=== PATIENT | female | born 1965 | race Caucasian/White ===

== ENCOUNTER 2022-02-16 07:31 | Emergency (ER) | payer OTHER ==
[~2022-02-16] VITALS: Ht 160 cm; Wt 91.0 kg
[2022-02-16 08:00] VITALS: BP 116/67
[2022-02-16] MEDS ORDERED: CEPH500T PO (09:49)
[2022-02-16] MEDS ORDERED: SULF1TAB48 PO (09:49)
[2022-02-16] MEDS ORDERED: OXYC-100 PO (09:49)
[2022-02-16] MEDS ORDERED: IBUPROFEN 400MG TABLET PO SCH (10:15)
[2022-02-17] MEDS ORDERED: CLIN-194 MT (05:43)
== END 2022-02-16 11:03 | disposition home or self-care (01) ==
LOC: ER 07:31
DX: L03.317 Cellulitis of buttock (principal); I10 Essential (primary) hypertension; E11.9 Type 2 diabetes mellitus without complications; E78.00 Pure hypercholesterolemia, unspecified; J45.909 Unspecified asthma, uncomplicated; F99 Mental disorder, not otherwise specified; Z98.890 Other specified postprocedural states
CPT/HCPCS: 76604; 99281

== ENCOUNTER 2022-02-16 23:12 | Emergency (ER) | payer OTHER ==
[~2022-02-16] VITALS: Ht 162.6 cm; Wt 93.0 kg
[~2022-02-16 23:12] MED LIST: CEPH500T PO; OXYC-100 PO; SULF1TAB48 PO
[2022-02-17] MEDS ORDERED: BACITRACIN ZINC OINT UDPKT TOP ONE (02:30)
[2022-02-17] MEDS ORDERED: FENTANYL CITRATE/PF 50MCG/ML 2ML VIAL IV ONE (02:30)
[2022-02-17] MEDS ORDERED: LIDOCAINE HCL/PF 1% 10 MG/ML 5ML VIAL INFIL ONE (02:30)
[2022-02-17] MEDS ORDERED: CLINDAMYCIN 600 MG in DEXTROSE 5% WATER 50 ML IV ONE (02:30)
[2022-02-17] MEDS ORDERED: CLINDAMYCIN 600MG PREMIX 50 ML IV NR (02:45)
[2022-02-17 03:10] LABS: HEMATOCRIT. 39.3 % (36.0-48.0); HEMOGLOBIN. 13.2 g/dL (12.0-16.0); MEAN CORPUSCULAR HEMOGLOBIN 29.2 pg (28.0-32.0); MEAN CORPUSCULAR VOLUME 87.3 fL (81.0-99.0); MEAN PLATELET VOLUME 9.5 fl (7.4-10.4); PLATELET 249 x1000/uL (130-400); RED CELL DISTRIBUTION WIDTH 13.9 % (11.6-14.6)
[2022-02-17] MEDS ORDERED: ONDANSETRON HCL 4MG/2ML INJ IV ONE (04:00)
[2022-02-17 04:01] VITALS: BP 138/87
[2022-02-17] MEDS ORDERED: CLIN-194 MT (05:43)
[2022-02-17] MEDS ORDERED: INSULIN REGULAR (HUMULIN R) 300UNITS/3ML VIAL SUBCUT ONE (05:45)
[2022-02-17 05:46] LABS: PLATELET ESTIMATE NORMAL
== END 2022-02-17 07:30 | disposition home or self-care (01) ==
LOC: ER 23:12
DX: L02.31 Cutaneous abscess of buttock (principal); E11.9 Type 2 diabetes mellitus without complications; I10 Essential (primary) hypertension
CPT/HCPCS: 36415; 82962; 85025; 96365; 96372; 96375; 99284; J1815; J2405; J3010; J3490; J7060